=== PATIENT | male | born 1985 | race Hispanic/Latino ===

== ENCOUNTER 2020-12-05 20:39 | Emergency (ER) | payer OTHER ==
[~2020-12-05] VITALS: Ht 162.6 cm; Wt 71.5 kg
[2020-12-05] MEDS ORDERED: GENTAMICIN SULF5 ML OS (21:34)
[2020-12-05 21:47] VITALS: BP 122/71
== END 2020-12-05 21:55 | disposition home or self-care (01) | DRG 125 ==
LOC: ED 20:39
DX: S05.02XA Injury of conjunctiva and corneal abrasion without foreign body, left eye, initial encounter (principal); X58.XXXA Exposure to other specified factors, initial encounter; Y93.E9 Activity, other interior property and clothing maintenance; Y92.89 Other specified places as the place of occurrence of the external cause; Y99.0 Civilian activity done for income or pay